=== PATIENT | female | born 1945 | race Caucasian/White ===

== ENCOUNTER 2018-06-06 04:41 | Day surgery (SDC) | payer OTHER ==
[~2018-06-06 04:41] MED LIST: ASPIR 8181 MG PO; GLUCOPHAGE XR500 MG PO; LIPITOR40 MG PO; TOPROL XL25 M1 PO; [UNRECOGNIZED DRUG - OTHER] PO; [UNRECOGNIZED DRUG - OTHER] SL
[2018-06-06] MEDS ORDERED: DUI500 PO (11:42)
[2018-06-06] MEDS ORDERED: TRAM1TAB98 PO (11:42)
== END 2018-06-06 16:15 | disposition home or self-care (01) ==
LOC: CIR.AMB 04:41
DX: M23.241 Derangement of anterior horn of lateral meniscus due to old tear or injury, right knee (principal); M23.251 Derangement of posterior horn of lateral meniscus due to old tear or injury, right knee; M65.861 Other synovitis and tenosynovitis, right lower leg